=== PATIENT | female | born 2000 | race African-American/Black ===

== ENCOUNTER 2021-03-20 03:22 | Emergency (ER) | payer SELFPAY ==
[~2021-03-20] VITALS: Ht 162.6 cm; Wt 50.0 kg
[2021-03-20] MEDS ORDERED: IBUPROFEN 600MG TABLET PO ONE (05:15)
[2021-03-20] MEDS ORDERED: ACETAMINOPHEN WITH CODEINE 300/30MG TABLET PO ONE (05:45)
[2021-03-20 05:54] VITALS: BP 122/72
[2021-03-20] MEDS ORDERED: IBUP-2028 PO (06:07)
[2021-03-20] MEDS ORDERED: T3 PO (06:07)
== END 2021-03-20 06:31 | disposition home or self-care (01) ==
LOC: ER 03:22
DX: S62.001A Unspecified fracture of navicular [scaphoid] bone of right wrist, initial encounter for closed fracture (principal); W01.0XXA Fall on same level from slipping, tripping and stumbling without subsequent striking against object, initial encounter; Y93.89 Activity, other specified; Y92.018 Other place in single-family (private) house as the place of occurrence of the external cause
CPT/HCPCS: 29125; 73110; 73130; 81025; 99284